=== PATIENT | female | born 1940 | race Caucasian/White ===

== ENCOUNTER 2020-10-14 07:28 | Inpatient (IN) | payer MEDICARE, MEDICAID ==
[~2020-10-14] VITALS: Ht 154.9 cm; Wt 86.6 kg
[2020-10-14 07:59] LABS: HEMATOCRIT 42.4 % (37.0-47.0); HEMOGLOBIN 13.6 gm/dL (12.0-15.0); MCHC 32.2 g/dL (28.0-37.0); MCV 93.2 fL (80.0-100.0); MPV 9.1 fl. (7.2-11.1); NUCLEATED RBCS 0 /100WBC; PLATELET COUNT* 358 thou/uL (150-400); RBC 4.55 mil/uL (4.20-5.00); RDW-CV 16.6 % (10.5-14.5); WBC 14.7 thou/uL (4.0-11.0)
[2020-10-14 08:11] VITALS: BP 157/94
[2020-10-14 08:11] LABS: APTT 29.3 Seconds (25.0-31.3); INR 1.1; PROTIME 11.3 Seconds (9.20-11.50)
[2020-10-14 08:12] LABS: POTASSIUM 4.3 mmol/L (3.5-5.1)
[2020-10-14 08:25] LABS: ALBUMIN 2.5 g/dL (3.4-5.0); TOTAL BILIRUBIN 0.5 mg/dL (<0.1-1.0); TOTAL PROTEIN 7.3 g/dL (6.4-8.2)
[2020-10-14] MEDS ORDERED: ACETAMINOPHEN500 M1 PO (08:28)
[2020-10-14 08:29] LABS: ABSOLUTE LYMPHOCYTES 0.6 thou/uL (0.8-5.3); ABSOLUTE MONOCYTES 0.6 thou/uL (0.0-1.2); ABSOLUTE NEUTROPHILS 13.5 thou/uL (1.6-8.1); METAMYELOCYTES 1 %
[2020-10-14] MEDS ORDERED: TENORMIN25 MG PO (08:29)
[2020-10-14] MEDS ORDERED: CELEXA10 MG PO (08:29)
[2020-10-14] MEDS ORDERED: CALCIUM 600 +1 EA16 PO (08:29)
[2020-10-14 08:30] LABS: PLATELET ESTIMATE ADEQUATE
[2020-10-14] MEDS ORDERED: ELIQUIS5 MG PO (08:30)
[2020-10-14] MEDS ORDERED: ARICEPT10 M1 PO (08:30)
[2020-10-14] MEDS ORDERED: GLIPIZIDE 10 MG10 MG PO (08:30)
[2020-10-14] MEDS ORDERED: LOPERAMIDE2 MG PO (08:31)
[2020-10-14] MEDS ORDERED: MELATONIN3 M1 PO (08:31)
[2020-10-14] MEDS ORDERED: PEPCID20 MG PO (08:31)
[2020-10-14] MEDS ORDERED: C-10001000 M1 PO (08:32)
[2020-10-14] MEDS ORDERED: RALOXIFENE HCL60 MG PO (08:32)
[2020-10-14] MEDS ORDERED: D3-200050 MCG PO (08:33)
[2020-10-14] MEDS ORDERED: ZINC SULFATE220 MG PO (08:33)
[2020-10-14 09:25] VITALS: BP 175/95
[2020-10-14 10:00] VITALS: BP 152/78
[2020-10-14] MEDS ORDERED: NYSTATIN 100,0015 G1 TOP (11:10)
[2020-10-14 16:56] VITALS: BP 167/91
[2020-10-15] VITALS: BP 183/119
[2020-10-15 04:00] VITALS: BP 174/87
[2020-10-15 08:50] VITALS: BP 148/75
[2020-10-15 12:53] VITALS: BP 149/93
--- NOTE | 2020-10-15 15:08 | EKG ---
[place] [address] ELECTROCARDIOGRAM REPORT Name: DARA CARLSON I Room: [address] ADM IN M.R.#: [id number] Admission: 10/14/20 Attend Phys: Mikhail Schultz Discharge: Date of : 40 Date of Service: 10/14/20 0741 Report #: [id number] THIS REPORT FOR: //name// [facility] ED Test Date: 2020-10-14 Test Time: 07:41:35 Pat Name: DARA CARLSON Department: Room: [facility] Gender: F Jewelry Sales Associate: : 1940 Requested By: Johann Mancini Order Number: [id number] MD: Micheal Alexandra Measurements Intervals [place] Rate: 139 P: ID: QRS: 25 QRSD: 84 T: 36 QT: 316 QTc: 481 Interpretive Statements Atrial fibrillation Low voltage, extremity and precordial leads Probable anteroseptal infarct, old possible Baseline wander in lead(s) III,V2,V4 No previous ECG available for comparison Electronically Signed On 10-15-2020 15:08:35 CHARTER COORDINATOR by Micheal Alexandra [email or web address] <ELECTRONICALLY SIGNED> By: Micheal Alexandra MD, FACC 10/15/20 1508 0741 0741 Micheal Alexandra MD, FACC /EPI
[2020-10-15 16:30] VITALS: BP 167/76
[2020-10-16] VITALS (7 sets, daily range): BP systolic 159–192; BP diastolic 76–102
[2020-10-17 04:38] VITALS: BP 154/79
[2020-10-17 08:00] VITALS: BP 178/98
[2020-10-17] MEDS ORDERED: CEFDINIR300 MG PO (09:52)
[2020-10-17] MEDS ORDERED: PREDNISONE 10 M10 MG PO (09:52)
[2020-10-17 10:38] LABS: HEMATOCRIT 40.4 % (37.0-47.0); MCHC 32.2 g/dL (28.0-37.0); MCV 92.9 fL (80.0-100.0); MPV 9.1 fl. (7.2-11.1); NUCLEATED RBCS 0 /100WBC; PLATELET COUNT* 365 thou/uL (150-400); RBC 4.34 mil/uL (4.20-5.00); RDW-CV 16.3 % (10.5-14.5); WBC 8.6 thou/uL (4.0-11.0)
[2020-10-17 10:48] LABS: ALBUMIN 2.1 g/dL (3.4-5.0); CALCIUM 8.8 mg/dL (8.5-10.1); CREATININE 1.1 mg/dL (0.6-1.3); POTASSIUM 4.5 mmol/L (3.5-5.1); TOTAL BILIRUBIN 0.2 mg/dL (<0.1-1.0); TOTAL PROTEIN 6.3 g/dL (6.4-8.2)
[2020-10-17 11:00] LABS: ABSOLUTE LYMPHOCYTES 0.5 thou/uL (0.8-5.3); ABSOLUTE MONOCYTES 0.2 thou/uL (0.0-1.2); ABSOLUTE NEUTROPHILS 7.9 thou/uL (1.6-8.1); ANISOCYTOSIS 1+; PLATELET ESTIMATE ADEQUATE; POIKILOCYTOSIS 1+
[2020-10-17 12:00] VITALS: BP 151/77
[2020-10-17 16:00] VITALS: BP 149/69
[2020-10-17 19:12] LABS: CALCIUM 8.5 mg/dL (8.5-10.1); POTASSIUM 4.8 mmol/L (3.5-5.1)
[2020-10-17 20:00] VITALS: BP 156/82
[2020-10-18] VITALS: BP 132/84
[2020-10-18 04:30] VITALS: BP 171/89
[2020-10-18 08:00] VITALS: BP 182/107
[2020-10-18 11:55] VITALS: BP 156/58
== END 2020-10-18 15:15 | DRG 177 ==
LOC: M.ERS 07:28 → M.ORTHSURG 08:32 → M.TBA-ER 08:32 → M.ORTHSURG 09:58 → M.2W 10-16 13:58
PROVIDERS: Family Medicine; Internal Medicine; ADMIT Internal Medicine; ATTEND Internal Medicine
DX: J15.6 Pneumonia due to other Gram-negative bacteria (principal); G93.41 Metabolic encephalopathy; J96.01 Acute respiratory failure with hypoxia; I48.91 Unspecified atrial fibrillation; F03.90 Unspecified dementia, unspecified severity, without behavioral disturbance, psychotic disturbance, mood disturbance, and anxiety; I10 Essential (primary) hypertension; E11.9 Type 2 diabetes mellitus without complications; Z87.81 Personal history of (healed) traumatic fracture; Z88.8 Allergy status to other drugs, medicaments and biological substances; Z20.828 Contact with and (suspected) exposure to other viral communicable diseases; Z88.1 Allergy status to other antibiotic agents; Z91.041 Radiographic dye allergy status; Z90.11 Acquired absence of right breast and nipple

== ENCOUNTER 2020-10-19 10:06 | Inpatient (IN) | payer MEDICARE, MEDICAID ==
[~2020-10-19] VITALS: Ht 154.9 cm; Wt 84.6 kg
[~2020-10-19 10:06] MED LIST: ACETAMINOPHEN500 M1 PO; ARICEPT10 M1 PO; C-10001000 M1 PO; CALCIUM 600 +1 EA16 PO; CEFDINIR300 MG PO; CELEXA10 MG PO; D3-200050 MCG PO; ELIQUIS5 MG PO; GLIPIZIDE 10 MG10 MG PO; LOPERAMIDE2 MG PO; MELATONIN3 M1 PO; NYSTATIN 100,0015 G1 TOP; PEPCID20 MG PO; PREDNISONE 10 M10 MG PO; RALOXIFENE HCL60 MG PO; TENORMIN25 MG PO; ZINC SULFATE220 MG PO
[2020-10-19 10:10] VITALS: BP 199/78
--- NOTE | 2020-10-19 10:32 | NUR ---
JASEN LEE IN CALLED AND THE NURSE STATED THAT THE PATIENT WAS SENT BACK TO THE ED FOR EVALUATION DUE TO INCREASED SOA AND THE PATIENT IS NOT EATING AND HAVING TROUBLE SWALLOWING. DR. BEDOYA NOTIFIED.
--- NOTE | 2020-10-19 10:42 | NUR ---
LAB IN ROOM DRAWING BLOOD AND BLOOD CULTURES.
[2020-10-19 10:45] LABS: HEMATOCRIT 42.3 % (37.0-47.0); HEMOGLOBIN 13.9 gm/dL (12.0-15.0); MCH 30.1 pg (26.0-34.0); MCHC 32.8 g/dL (28.0-37.0); MCV 91.8 fL (80.0-100.0); MPV 8.9 fl. (7.2-11.1); NUCLEATED RBCS 0 /100WBC; PLATELET COUNT* 379 thou/uL (150-400); WBC 11.6 thou/uL (4.0-11.0)
[2020-10-19 11:24] LABS: POTASSIUM 4.2 mmol/L (3.5-5.1)
[2020-10-19 11:30] LABS: ALBUMIN 2.3 g/dL (3.4-5.0); TOTAL BILIRUBIN 0.3 mg/dL (<0.1-1.0); TOTAL PROTEIN 6.3 g/dL (6.4-8.2)
[2020-10-19 11:37] LABS: ABSOLUTE LYMPHOCYTES 2.1 thou/uL (0.8-5.3); ABSOLUTE NEUTROPHILS 7.5 thou/uL (1.6-8.1); METAMYELOCYTES 1 %; PLATELET ESTIMATE ADEQUATE
--- NOTE | 2020-10-19 11:54 | NUR ---
PEGGY BYRNE CALLED FOR UPDATE. UPDATE GIVEN.
--- NOTE | 2020-10-19 15:35 | NUR ---
called pt's son PEGGY, TO LET HIM HIS MOTHER WILL BE ADMITTED TO ROOM 229.
[2020-10-19 16:18] VITALS: BP 101/64
[2020-10-19 17:00] VITALS: BP 101/64
--- NOTE | 2020-10-19 17:00 | NUR ---
ER ADMIT TO ROOM 229 VIA CART. ADMISSION ASSESSMENT COMPLETE, DEFER TO COMPUTER CHARTING. PATIENT ALERT ORIENTED TO SELF AND SITUATION. INCONTINENT LARGE AMT URINE - PURE WICK CATH PLACED. 02 ON 2L PER NC. ORIENTED TO ROOM/CALL LIGHT AND PLAN OF CARE. HOB ELEVATED, CALL LIGHT WITHIN REACH.
--- NOTE | 2020-10-19 18:00 | NUR ---
SON IN VISITING.
[2020-10-19 20:00] VITALS: BP 145/73
[2020-10-20] VITALS (7 sets, daily range): BP systolic 122–168; BP diastolic 59–81
--- NOTE | 2020-10-20 05:35 | NUR ---
ASSUMED CARE OF PT AFTER REPORT AT 1930. PT A&OX4. VSS. PHYSICAL ASSESSMENT COMPLETED AND CHARTED. PT ON O2 AT 2L NC. PT TRACING AFIB ON TELE. PT TURNED TO SIDES. PT WITH EPISODE OF INCONTINENT BOWEL THIS AM. PT DENIES ANY PAIN. CALL LIGHT WITHIN REACH.
--- NOTE | 2020-10-20 09:39 | EKG ---
[place] [address] ELECTROCARDIOGRAM REPORT Name: DARA CARLSON I Room: [address] ADM IN M.R.#: [id number] Admission: 10/19/20 Attend Phys: Kristin Ya Discharge: Date of : 40 Date of Service: 10/19/20 1027 Report #: [id number] THIS REPORT FOR: //name// [facility] ED Test Date: 2020-10-19 Test Time: 10:27:02 Pat Name: DARA CARLSON Department: Room: [facility] Gender: F Multimedia Journalist: MICHAEL : 1940 Requested By: Ben Walden Order Number: [id number] MD: Dinh Flores Measurements Intervals [place] Rate: 81 P: MS: QRS: 20 QRSD: 96 T: 32 QT: 375 QTc: 436 Interpretive Statements Atrial fibrillation poor r wave progression Low voltage, extremity leads Compared to ECG 10/14/2020 07:41:35 rate has slowed Electronically Signed On 10-20-2020 9:38:52 AUTO PARTS PROFESSIONAL by Dinh Flores [email or web address] <ELECTRONICALLY SIGNED> By: Dinh Flores MD, [facility] 10/20/20 0938 1027 1027 Dinh Flores MD, [facility] /EPI
--- NOTE | 2020-10-20 09:44 | CON ---
[address] [address] CONSULTATION Name: DARA CARLSON I Room: [address] IN [place].#: [id number] Admission: 10/19/20 Attend Phys: Mahamed Barragan Discharge: Date of : 40 Report #: [id number] THIS REPORT FOR: cc: Agapito Florez MD, Dennis R MD ~ Dinh Flores MD [facility] DATE OF SERVICE: 10/20/2020 CARDIOLOGY CONSULTATION PRIMARY CARE PHYSICIAN: Dr. Agapito Flroez. HISTORY OF PRESENT ILLNESS: The patient is an 80-year-old white female whom I was asked to see in the hospital today after she was noted to have a pericardial effusion. The history is obtained from the chart. Unfortunately, the patient is very confused and has minimal response at this time. She is awake. There are no family members available. She actually presented here to [place] on 10/14 last week from a residential with confusion and a cough. Apparently, the residential had multiple causes of COVID-19. Her previous medications included atenolol, Celexa, Aricept, Eliquis, glipizide. She has a previous INTOLERANCE TO PROCAINE. She did have a previous history of breast cancer. During her recent hospitalization, she was felt to have pneumonia and was sent back to the residential 3 days later on antibiotics. However, she was brought back to the Emergency Room yesterday complaining of being weak and short of breath. She was not eating and having shortness of breath. PAST MEDICAL HISTORY: Otherwise significant for previous femur fracture, hypertension, diabetes. CURRENT MEDICATIONS: At the residential includes atenolol, Aricept, Eliquis, glipizide, Pepcid. ALLERGIES: SHE HAS AN ALLERGY TO PROCAINE. SOCIAL HISTORY: She quit smoking years ago. REVIEW OF SYSTEMS: Cannot be obtained. PHYSICAL EXAMINATION: GENERAL: Revealed an elderly, frail-appearing female, lying in bed. She appeared in no acute distress. VITAL SIGNS: She had a blood pressure of 130/60, pulse is 70. She is afebrile. HEENT: She was anicteric. Conjunctivae pink. Mucous membranes appeared dry. NECK: Veins [place] [address] CONSULTATION Name: DARA CARLSON I Room: [address] IN [facility].#: [id number] Admission: 10/19/20 Attend Phys: Mahamed Barragan Discharge: Date of : 40 Report #: [id number] CHEST: Revealed decreased breath sounds at the bases. CARDIOVASCULAR: Regular rate and rhythm without murmur or rub. ABDOMEN: Soft. EXTREMITIES: Had no pitting edema. SKIN: Cool and dry. NEUROLOGIC: She was able to move all extremities. She is not oriented to time or place. ECG on admission showed atrial fibrillation, low voltage. Her workup included x-rays that included a portable chest x-ray 3 days ago that showed atelectasis, left pleural effusion. Chest x-ray yesterday showed cardiomegaly, atelectasis, otherwise clear lung monte. LABORATORY DATA: Sodium 137, BUN 35, creatinine 1.0, glucose 136. Liver function studies were normal. Albumin is only 2.3. BNP 4543. White blood cell count 11.6, hemoglobin 13.9. IMPRESSION AND RECOMMENDATIONS: 1. Recent pneumonia. 2. Atrial fibrillation. Rate controlled with beta-marisabel. The patient is chronically anticoagulated on Eliquis. 3. Dementia. I would establish code blue status. 4. Diabetes. 5. Hypertension. The patient is on a beta marisabel. 6. Fatigue. I would check thyroid function studies. <ELECTRONICALLY SIGNED> By: Dinh Flores MD, [facility] 10/20/20 0944 0820 [id number] Flores MD, FACC /nt
--- NOTE | 2020-10-20 12:14 | NUR ---
ASSUMED CARE OF PATIENT THIS AM AT 0730. PATIENT IS LETHARGIC, DROWSY THIS AM. TELE SHOWS A FIB. PATIENT WAS KEPT NPO FOR CARDILOGY CONSULT THIS AM. DR MCFARLANE IN TO SEE PATIENT AND ORDERS GIVEN TO RESUME DIET. PATIENT WAS GIVEN CRUSHED PO MEDICATIONS WITH PUDDING WITHOUT DIFFICULTY. SHE ALSO WAS GIVEN WATER. NO COUGH NOTED. PATIENT IS INCONTINENT OF URINE. PUREWICK IS IN PLACE. NO FALLS OR INJURY. WILL CONTINUE TO MONITOR.
--- NOTE | 2020-10-20 13:52 | NUR ---
CM ATTEMPTED TO SPEAK TO THE PT TO COMPLETE CM ASSESSMENT. PT ALERT TO SELF, AND DROWSY. REVIEW OF PT'S CHART INFORMS THAT PT IS A RE-ADMIT AND HAD D/C'D FROM THIS HOSPITAL ON 10/18/20. PT CURRENTLY RESIDES AT [facility]. PT IS WHEELCHAIR BOUND AT THE FACILITY. PT DOES NOT USE HOME OXYGEN AT THE FACILITY, BUT IS CURRENTLY ON 2L O2 HERE. PT NORMALLY ABLE TO FEED HERSLEF. PT'S COVID TEST IS NEGATIVE. CM WILL REMAIN AVAILABLE TO ASSIST AND FOLLOW FOR D/C PLANNING. CM WILL REMAIN AVAILABLE TO ASSIST AND FOLLOW NEEDED. [facility] PHONE: [phone]
[2020-10-21 04:00] VITALS: BP 142/43
--- NOTE | 2020-10-21 05:27 | NUR ---
ASSUMED CARE OF PT AFTER REPORT AT 1930. PT A&0X1. SLOW TO RESPOND. VSS. PHYSICAL ASSESSMENT COMPLETED AND CHARTED. PT ON O2 AT 2L NC. PT TRACING AFIB/PVC ON TELE. PT TURNED TO SIDES. FALL PRECAUTIONS IN PLACE. CALL LIGHT WITHIN REACH.
[2020-10-21 11:22] VITALS: BP 145/45
[2020-10-21 17:10] VITALS: BP 143/81
[2020-10-21 20:00] VITALS: BP 133/53
[2020-10-22] VITALS: BP 121/58
[2020-10-22 04:03] VITALS: BP 146/67
[2020-10-22 04:32] LABS: HEMATOCRIT 42.4 % (37.0-47.0); HEMOGLOBIN 13.6 gm/dL (12.0-15.0); MCH 29.5 pg (26.0-34.0); MCHC 32.2 g/dL (28.0-37.0); MCV 91.7 fL (80.0-100.0); MPV 9.6 fl. (7.2-11.1); RBC 4.62 mil/uL (4.20-5.00); WBC 14.5 thou/uL (4.0-11.0)
--- NOTE | 2020-10-22 04:50 | NUR ---
ASSUMED CARE OF PT AFTER REPORT AT 1930. PT A&OX1. SLOW TO RESPOND. VSS. PHYSICAL ASSESSMENT COMPLETED AND CHARTED. PT ON 2L NC. PT TRACING AFIB ON TELE. PT TURNED TO SIDES. CALL LIGHT WITHIN REACH.
[2020-10-22 05:19] LABS: ALBUMIN 2.4 g/dL (3.4-5.0); CALCIUM 9.2 mg/dL (8.5-10.1); CREATININE 1.1 mg/dL (0.6-1.3); MAGNESIUM 2.3 mg/dL (1.8-2.4); POTASSIUM 3.7 mmol/L (3.5-5.1); TOTAL BILIRUBIN 0.4 mg/dL (<0.1-1.0); TOTAL PROTEIN 6.1 g/dL (6.4-8.2)
[2020-10-22 08:00] VITALS: BP 154/67
[2020-10-22 12:00] VITALS: BP 136/49
--- NOTE | 2020-10-22 13:12 | 2DMMODE ---
[place] [address] 2 D/M-MODE ECHOCARDIOGRAM Name: DARA CARLSON I Room: [address] IN M.R.#: [id number] Admission: 10/19/20 Attend Phys: Kristin Ya Discharge: Date of : 40 Date of Service: 10/22/20 1311 Report #: [id number] THIS REPORT FOR: cc: Agapito Florez MD, Dennis R MD Blick,Dinh Elena MD [facility] ~ APPROVED REPORT Study performed: 10/22/2020 11:28:19 EXAM: Comprehensive 2D, Doppler, and color-flow Echocardiogram Patient Location: Out-Patient BSA: 1.82 HR: 78 bpm BP: 154/67 mmHg Other Information Study Quality: Good Indications R/O Effusion 2D Dimensions IVSd: 11.92 (7-11mm) LVOT Diam: 20.19 (18-24mm) LVDd: 34.17 mm PWd: 9.50 (7-11mm) Ascending Ao: 28.29 (22-36mm) LVDs: 21.55 (25-40mm) Aortic Root: 24.86 mm Volumes Left Atrial Volume (Systole) LA ESV Index: 27.70 mL/m2 Aortic Valve AoV Peak Thompson.: 1.93 m/s AO Peak Gr.: 14.82 mmHg LVOT Max P.27 mmHg AO Mean Gr.: 8.48 mmHg LVOT Mean P.10 mmHg LVOT Max V: 0.75 m/s AO V2 VTI: 33.86 cm LVOT Mean V: 0.48 m/s OSMAN (VTI): 1.28 cm2 LVOT V1 VTI: 13.57 cm Mitral Valve MV Decel. Time: 190.62 [place] [address] 2 D/M-MODE ECHOCARDIOGRAM Name: DARA CARLSON I Room: [address] IN .R.#: [id number] Admission: 10/19/20 Attend Phys: Kristin Ya Discharge: Date of : 40 Date of Service: 10/22/20 1311 Report #: [id number] MV E Max Thompson.: 0.98 m/s MV PHT: 55.28 ms MVA (PHT): 3.98 cm2 TDI E/Lateral E': 9.80 E/Medial E': 6.53 Medial E' Thompson.: 0.15 m/s Lateral E' Thompson.: 0.10 m/s Pulmonary Valve PV Peak Thompson.: 1.24 m/s PV Peak Gr.: 6.16 mmHg Tricuspid Valve RAP Estimate: 5.00 mmHg TR Peak Gr.: 25.73 mmHg RVSP: 30.73 mmHg PA Pressure: 30.73 mmHg Left Ventricle The left ventricle is normal size. There is normal LV segmental wall motion. There is normal left ventricular wall thickness. Left ventricular systolic function is normal. The left ventricular ejection fraction is within the normal range. LVEF is 60-65%. This study is not technically sufficient to allow evaluation of the LV diastolic function. Right Ventricle The right ventricle is normal size. The right ventricular systolic function is normal. Atria Left atrium is mildly dilated. The right atrium size is normal. Aortic Valve The aortic valve is normal in structure. No aortic regurgitation is present. There is no aortic valvular stenosis. Mitral Valve The mitral valve is normal in structure. Mild mitral regurgitation. No evidence of mitral valve stenosis. Tricuspid Valve The tricuspid valve is normal in structure. Mild tricuspid regurgitation[place] [address] 2 D/M-MODE ECHOCARDIOGRAM Name: DARA CARLSON I Room: [address] IN [facility]#: [id number] Admission: 10/19/20 Attend Phys: Kristin Ya Discharge: Date of : 40 Date of Service: 10/22/20 1311 Report #: [id number] The pulmonary valve is normal in structure. There is no pulmonic valvular regurgitation. Great Vessels The aortic root is normal in size. IVC is normal in size and collapses >50% with inspiration. Pericardium There is no pericardial effusion. <Conclusion> LVEF is 60-65%. Left atrium is mildly dilated. Mild mitral regurgitation. There is no pericardial effusion. <ELECTRONICALLY SIGNED> By: iDnh Flores MD, FACC 10/22/20 1311 1311 1311 Dinh Flores MD, FACC /INF
--- NOTE | 2020-10-22 13:20 | NUR ---
CM INFORMED DURING PRIME ROUNDING OF THE PLAN OF CARE FOR THE PT. PHYSICIAN INFORMS OF PLAN FOR PT TO RETURN TO HER LTC BED AT [facility] TOMORROW. CM SPOKE TO [facility] ADMISSIONS TO INFORM OF PLAN FOR PT TO RETURN TOMORROW, AND THEY ARE IN AGREEMENT. PT WILL NEED A RAPID COVID TEST PRIOR TO D/C. PT TO HAVE SPEECH THERAPY SWALLOWING EVAL TODAY. CM WILL REMAIN AVAILABLE TO ASSIST AND FOLLOW NEEDED. [facility] PHONE: [phone] FAX: [phone]
[2020-10-22 16:00] VITALS: BP 129/53
[2020-10-22 20:00] VITALS: BP 136/40
[2020-10-23] VITALS: BP 123/44
[2020-10-23 04:00] VITALS: BP 144/76
--- NOTE | 2020-10-23 04:51 | NUR ---
ASSUMED CARE OF PT AFTER REPORT AT 1930. PT A&OX1. SLOW TO RESPOND. VSS. PHYSICAL ASSESSMENT COMPLETED AND CHARTED. PT ON O2 AT 2L NC. PT TRACING AFIB ON TELE. PT TURNED TO SIDES. FALL PRECAUTIONS IN PLACE. CALL LIGHT WITHIN REACH.
[2020-10-23 08:22] VITALS: BP 145/57
[2020-10-23] MEDS ORDERED: AUGMENTIN 875-1 EACH PO (09:56)
[2020-10-23 11:40] VITALS: BP 136/48
[2020-10-23 12:56] VITALS: BP 145/57
--- NOTE | 2020-10-23 13:46 | NUR ---
CM INFORMED DURING PRIME ROUNDING OF THE PLAN OF CARE FOR THE PT. PLAN FOR PT TO D/C TODAY BACK TO [facility] LTC LEVEL OF CARE. CM SPOKE TO THE PT'S SON PEGGY TO INFORM OF THE PT'S RETURN AND HE IS IN AGREEMENT. KALYN SPOKE TO JOURDAN WITH OG ADMISSIONS AND SHE ACCEPTS PT RETURN. CM FAXED PT'S D/C ORDERS AND NEGATIVE RAPID COVID RESULT. CM ARRANGED NON-EMERGENT TRANSPORT WITH [facility] FOR 1400. CM INFORMED THE RN IN-CHARGE OF PT OF THE PT'S TIME OF TRANSPORT AND WHERE TO CALL REPORT. RN IN AGREEMENT. CM WILL REMAIN AVAILABLE TO ASSIST AND FOLLOW NEEDED. [facility] PHONE: [phone] FAX: [phone]
--- NOTE | 2020-10-23 14:28 | NUR ---
PT DISCHARGED BACK HOME TO [facility]. IV OUT. PT STABLE. 2LO2. ATTEMPTED TO CALL REPORT AND NO ANSWER. WILL TRY AGAIN. NO PERSONAL ITEMS
--- NOTE | 2020-11-04 21:14 | CON ---
[address] [address] CONSULTATION Name: DARA CARLSON I Room: [address] IN [place].#: [id number] Admission: 10/19/20 Attend Phys: Mahamed Barragan Discharge: 10/23/20 Date of : 40 Report #: [id number] THIS REPORT FOR: cc: Agapito Florez MD, Dennis R MD ~ Jaxon Murray MD DATE OF SERVICE: 10/22/2020 HISTORY OF PRESENT ILLNESS: This is an 80-year-old female patient who was evaluated by me for any neurological etiology for the patient's altered mental status. The patient is unable to provide any reliable history. I reviewed the patient's record. I called the patient's son and talked to him and he said this patient had multiple strokes in the past. She has longstanding dementia. She used to be a smoker. She does not remember dates and months, but sometime she will recognize close relatives. She is DNR. REVIEW OF SYSTEMS: A 14-point review of system was carried out. This [facility] because of altered mental status. She was in the hospital recently for pneumonia. She has a history of dementia, atrial fibrillation, left femur fracture, shortness of breath, altered mental status, hypertension, diabetes, mastectomy. This was a relevant 14-point review of system. PAST MEDICAL HISTORY: Positive for stroke. Further history regarding strokes is not available, but she also has advanced dementia. FAMILY HISTORY: Unremarkable. SOCIAL HISTORY: Negative for alcohol abuse. PHYSICAL EXAMINATION: Indicates she is alert. She can tell me what month it is. She does not tell me what date it is. Her speech is somewhat there. Fund of knowledge is markedly diminished. Cranial nerve examination 2-12 was attempted. She does not even understand the instructions and I cannot be sure about that exam. Similarly, neuromuscular examination was attempted. She does not understand instruction to take posture for reflexes or do the sensory examination. She moves all 4 extremities. She is weak, but I cannot tell anything out. There is no meningeal sign. There is no carotid bruit. She can hear. Her vision is okay. She has no thyroid mass. Pulses appeared to be palpable. Her blood pressure is 154/67, pulse is 69, temperature is 98.5. White count of 14.5. Sodium is normal. She did have a CT scan of the head, which showed atrophy. [place] [address] CONSULTATION Name: DARA CARLSON I Room: [address]#: [id number] Admission: 10/19/20 Attend Phys: Mahamed Barragan Discharge: 10/23/20 Date of : 40 Report #: [id number]. IMPRESSION: This patient has numerous medical problems. She has advanced dementia. I discussed with the son the options. I told the son that we can do the further workup to see if she has a stroke or any other etiology or we can confine ourselves to conservative and comfort care and not to do any further testing. Son preferred the latter. Therefore, I did not schedule any further testing. I will discuss this patient with you tomorrow, but since son would not like to do any further testing and she is a DNR, we will basically sign off at this time and please call us in case there is any question. <ELECTRONICALLY SIGNED> By: Jaxon Murray MD 11/04/202113 [id number] 24Jaxon Murray MD /nt
== END 2020-10-23 14:36 | DRG 177 ==
LOC: M.ERS 10:06 → M.2W 12:39 → M.TBA-ER 12:39 → M.2W 16:37
PROVIDERS: Emergency Medicine Emergency Medical Services; ADMIT Internal Medicine; ATTEND Internal Medicine
DX: J69.0 Pneumonitis due to inhalation of food and vomit (principal); G93.41 Metabolic encephalopathy; I50.32 Chronic diastolic (congestive) heart failure; I31.3 Pericardial effusion (noninflammatory); J15.9 Unspecified bacterial pneumonia; F03.90 Unspecified dementia, unspecified severity, without behavioral disturbance, psychotic disturbance, mood disturbance, and anxiety; Z66 Do not resuscitate; E11.9 Type 2 diabetes mellitus without complications; I11.0 Hypertensive heart disease with heart failure; I48.91 Unspecified atrial fibrillation; K21.9 Gastro-esophageal reflux disease without esophagitis; Z20.822 Contact with and (suspected) exposure to COVID-19; Z79.01 Long term (current) use of anticoagulants; Z90.11 Acquired absence of right breast and nipple; Z79.84 Long term (current) use of oral hypoglycemic drugs; Z79.899 Other long term (current) drug therapy; Z88.1 Allergy status to other antibiotic agents; Z88.8 Allergy status to other drugs, medicaments and biological substances; Z87.891 Personal history of nicotine dependence; Z85.3 Personal history of malignant neoplasm of breast